=== PATIENT | male | born 1955 | race Caucasian/White ===

== ENCOUNTER 2018-03-13 07:34 | Inpatient (IN) ==
[2018-03-13] MEDS ORDERED: Heparin 10,000 UNITS/10 ML Vial (for IV use) ONE (07:41)
[2018-03-13] MEDS ORDERED: Heparin - SQ 10,000 UNITS/ML Vial ONE (07:41)
[2018-03-13] MEDS ORDERED: Protamine Sulfate Inj 50 MG/5 ML Vial ONE (07:41)
[2018-03-13] MEDS ORDERED: Sodium Chlor 0.9% Inj 500 ML IV.CONT ONE (08:30)
[2018-03-13] MEDS ORDERED: Metoprolol Tartrate 25 MG Tablet PO ONE (08:30)
[2018-03-13] MEDS ORDERED: Chlorhexidine Gluconate 2% 1 Pack (2 Cloths) TOPICAL ONE (08:30)
--- NOTE | 2018-03-13 08:41 | XR ---
EXAM DATE: 03/13/2018 8:38 AM EST AGE/SEX: 62 years / Male INDICATIONS: Evaluate for pneumothorax, pneumonia, and other communicable diseases. Pre-op, left car otid endarterectomy. CLINICAL DATA: This is the patient's initial encounter. Patient reports that signs and symptoms have been present for 1 day and indicates a pain score of 0/10. MEDICAL/SURGICAL HISTORY: Cerebrovascular disease. TIA's. . Carotid endarterectomy. COMPARISON: [facility] [place] AP, 01/28/2015. . FINDINGS: A single AP view of the chest demonstrates the lungs to be symmetrically aerated without evidence of mass, infiltrate or effusion. The cardiomediastinal contours are unremarkable. Osseous structures a re intact. CONCLUSION: No acute disease Electronically signed by: John Landon MD 03/13/2018 8:40 AM EST
[2018-03-13 08:53] LABS: Baso # (Auto) 0.1 th/mm3 (0.0-0.2); Baso % (Auto) 0.7 % (0.0-2.0); Eos # (Auto) 0.1 th/mm3 (0.0-0.4); Hematocrit 47.4 % (39.0-51.0); Hemoglobin 16.2 gm/dL (13.0-17.0); Lymph # (Auto) 2.1 th/mm3 (1.0-4.8); Lymph % (Auto) 29.5 % (9.0-44.0); Mean Corpuscular HGB Conc 34.2 % (32.0-36.0); Mean Corpuscular Volume 96.7 fL (80.0-100.0); Mean Platelet Volume 7.8 fL (7.0-11.0); Mono # (Auto) 0.5 th/mm3 (0.0-0.9); Mono % (Auto) 7.2 % (0.0-8.0); Neut # (Auto) 4.3 th/mm3 (1.8-7.7); Neut % (Auto) 60.6 % (16.0-70.0); Platelet Count 197 th/mm3 (150-450); Red Cell Distribution Width 13.6 % (11.6-17.2)
[2018-03-13] MEDS ORDERED: ceFAZolin 2 GM Premix Inj 2 GM/50 ML PIGGYBACK IV.SIG ONE (09:17)
[2018-03-13 09:27] LABS: Calcium 8.9 mg/dL (8.5-10.1); Potassium 4.5 meq/L (3.5-5.1)
[2018-03-13] MEDS ORDERED: *morphine SULFATE 10 MG/ML PERIprocedure ONLY ONE (13:09)
[2018-03-13] MEDS ORDERED: fentaNYL Citrate Inj 100 MCG/2 ML Ampul ONE ×2 (13:12)
[2018-03-13] MEDS ORDERED: *morphine SULFATE 4 MG/ML PERIprocedure ONLY ONE ×2 (13:40→14:03)
--- NOTE | 2018-03-13 13:42 | ECG ---
Date Performed: 03/13/2018 Time Performed: 08:35:53 PTAGE: 62 years EKG: SINUS BRADYCARDIA EARLY REPOLARIZATION BORDERLINE ECG Since the PREVIOUS TRACING , no significant change noted PREVIOUS TRACIN08/18/2014 21.32 DOCTOR: Cj Lopez Interpretating Date/Time 03/13/2018 13:40:03
[2018-03-13] MEDS ORDERED: Post-op Orders (for Pharmacy) OTHER ONE (13:57)
[2018-03-13] MEDS ORDERED: Bisacodyl 10 MG Supp RECTAL PRN (13:57)
[2018-03-13] MEDS ORDERED: Morphine Inj 4 MG/ML Vial IV.PUSH PRN (13:57)
[2018-03-13] MEDS ORDERED: Naloxone Inj 0.4 MG/ML Vial IV.PUSH PRN (13:57)
[2018-03-13] MEDS: Lisinopril 20 MG Tablet PO SCH (14:25)
[2018-03-13] MEDS: Metoprolol Tartrate 25 MG Tablet PO SCH ×2 (14:25→20:17)
[2018-03-13] MEDS: Sod Chloride 0.9% Inj 1,000 ML IV.CONT SCH (17:44)
[2018-03-13] MEDS: ceFAZolin 1 GM Premix Inj 1 GM/50 ML FROZ.PIGGY IV.SIG SCH (20:16)
[2018-03-13] MEDS: Senna/Docusate Sodium 8.6/50 MG Tablet PO SCH (20:17)
[2018-03-14] MEDS: ceFAZolin 1 GM Premix Inj 1 GM/50 ML FROZ.PIGGY IV.SIG SCH ×2 (03:34→12:21)
[2018-03-14 06:17] LABS: Baso % (Auto) 0.1 % (0.0-2.0); Hematocrit 39.3 % (39.0-51.0); Hemoglobin 13.4 gm/dL (13.0-17.0); Lymph # (Auto) 1.3 th/mm3 (1.0-4.8); Mean Corpuscular HGB Conc 34.1 % (32.0-36.0); Mean Corpuscular Hemoglobin 33.1 pg (27.0-34.0); Mean Corpuscular Volume 96.8 fL (80.0-100.0); Mean Platelet Volume 7.8 fL (7.0-11.0); Mono # (Auto) 0.7 th/mm3 (0.0-0.9); Mono % (Auto) 5.9 % (0.0-8.0); Neut # (Auto) 9.8 th/mm3 (1.8-7.7); Platelet Count 179 th/mm3 (150-450); Red Blood Count 4.06 mil/mm3 (4.50-5.90); Red Cell Distribution Width 13.4 % (11.6-17.2); White Blood Count 11.8 th/mm3 (4.0-11.0)
[2018-03-14 06:41] LABS: Calcium 8.5 mg/dL (8.5-10.1); Carbon Dioxide 23.3 meq/L (21.0-32.0); Potassium 4.4 meq/L (3.5-5.1)
[2018-03-14] MEDS: Senna/Docusate Sodium 8.6/50 MG Tablet PO SCH ×2 (08:16→08:28)
[2018-03-14] MEDS: Metoprolol Tartrate 25 MG Tablet PO SCH (08:16)
[2018-03-14] MEDS: Lisinopril 20 MG Tablet PO SCH (08:16)
[2018-03-14] MEDS: Sod Chloride 0.9% Inj 1,000 ML IV.CONT SCH (08:27)
--- NOTE | 2018-03-14 12:27 | P.PNVS ---
Subjective Subjective/Hospital Course: 62-year-old male underwent left carotid endarterectomy/redo for sub-bifurcation common carotid artery stenosis Patient is awake alert and oriented Neurologically fully intact Incision is clean and dry and hemodynamically patient is stable DC TERESITA DC patient today with follow-up in my office in about 2-3 weeks Objective Vital Signs / I&O: Vital Signs 03/13/18 13:01 03/13/18 13:02 03/13/18 13:15 Temperature 98.5 F Pulse Rate 65 64 65 Respiratory Rate 14 17 Blood Pressure 163/72 H 129/60 Pulse Oximetry 100 100 93 L 03/13/18 13:30 03/13/18 13:45 03/13/18 14:00 Temperature 97.8 F Pulse Rate 63 62 66 Respiratory Rate 13 9 L 15 Blood Pressure 153/70 H 140/64 143/73 H Pulse Oximetry 98 97 94 L 03/13/18 14:15 03/13/18 14:30 03/13/18 14:45 Temperature Pulse Rate 64 64 66 Respiratory Rate 10 L 9 L 20 Blood Pressure 142/65 H 135/66 Pulse Oximetry 97 97 96 03/13/18 14:55 03/13/18 15:07 03/13/18 15:13 Temperature Pulse Rate 66 65 Respiratory Rate 16 Blood Pressure 115/57 L Pulse Oximetry 96 94 L 96 03/13/18 15:29 03/13/18 16:00 03/13/18 17:00 Temperature 97.8 F Pulse Rate 64 61 68 Respiratory Rate 12 11 L 20 Blood Pressure 121/65 Pulse Oximetry 96 96 98 03/13/18 19:00 03/13/18 20:00 03/13/18 21:00 Temperature 97.9 F Pulse Rate 66 69 60 Respiratory Rate 21 26 H 16 Blood Pressure Pulse Oximetry 98 100 98 03/13/18 22:00 03/13/18 23:00 03/14/18 00:00 Temperature 98.1 F Pulse Rate 60 58 L 58 L Respiratory Rate 14 15 16 Blood Pressure Pulse Oximetry 97 97 98 03/14/18 01:00 03/14/18 02:00 03/14/18 03:00 Temperature Pulse Rate 57 L 56 L 55 L Respiratory Rate 13 17 16 Blood Pressure Pulse Oximetry 97 98 95 03/14/18 04:00 03/14/18 05:00 03/14/18 06:00 Temperature 98.4 F Pulse Rate 56 L 55 L 58 L Respiratory Rate 10 L 16 16 Blood Pressure Pulse Oximetry 97 99 96 03/14/18 07:00 03/14/18 07:29 03/14/18 08:00 Temperature 98.0 F Pulse Rate 57 L 66 57 L Respiratory Rate 11 L 28 H 17 Blood Pressure 142/67 H Pulse Oximetry 96 97 97 03/14/18 09:00 03/14/18 09:15 03/14/18 10:00 Temperature Pulse Rate 54 L 60 60 Respiratory Rate 10 L 27 H 23 Blood Pressure 173/78 H 144/68 H Pulse Oximetry 98 96 95 03/14/18 10:46 03/14/18 11:06 03/14/18 11:46 Temperature Pulse Rate 60 57 L Respiratory Rate 17 19 Blood Pressure 155/83 H 131/70 Pulse Oximetry 94 L 90 L 91 L 03/14/18 12:00 Temperature 98.1 F Pulse Rate 66 Respiratory Rate 29 H Blood Pressure Pulse Oximetry 91 L Intake & Output 03/13/18 03/14/18 03/14/18 18:59 06:59 18:59 Intake Total 1670 / 1670 580 / 580 Output Total 120 / 120 1135 / 1135 Balance 1550 / 1550 -555 / -555 Weight 68 kg 67.2 kg Intake: IV 50 / 50 100 / 100 Ancef 1 GM Premix Inj 1 gm In 100 / 100 50 ml @ 200 mls/hr IV.SIG Q8H REPLACED BY [facility] Rx#:[id number] Ancef 2 GM Premix Inj 2 gm In 50 / 50 50 ml @ 0 mls/hr IV.SIG .STK- [facility] Rx#:[id number] Oral 620 / 620 480 / 480 Anesthesia Amount 1000 / 1000 Output: Blood Draw 100 / 100 Urine 0 / 0 1100 / 1100 Wound Drainage 20 / 20 35 / 35 Left Neck 20 / 20 35 / 35 Other: # Voids 4 Weight On Admission 68 kg Laboratory Results - last 24 hr 03/14/18 03/14/18 05:00 05:00 WBC 11.8 H D RBC 4.06 L Hgb 13.4 D Hct 39.3 MCV 96.8 MCH 33.1 MCHC 34.1 RDW 13.4 Plt Count 179 MPV 7.8 Neut % (Auto) 83.0 H Lymph % (Auto) 11.0 Beckham % (Auto) 5.9 Eos % (Auto) 0.0 Baso % (Auto) 0.1 Neut # (Auto) 9.8 H Lymph # (Auto) 1.3 Beckham # (Auto) 0.7 Eos # (Auto) 0.0 Baso # (Auto) 0.0 WBC Differential . Differential Comment Auto diff final Sodium 134 L Potassium 4.4 Chloride 104 Carbon Dioxide 23.3 Anion Gap 7 BUN 12 Creatinine 1.03 Estimated GFR 74 L Random Glucose 130 H Calcium 8.5 Impressions Chest X-Ray 03/13/18 00:00 CONCLUSION: No acute disease
--- NOTE | 2018-03-14 16:11 | MP ---
cc: Michael Kunz MD DATE OF OPERATION: 03/13/2018 PREOPERATIVE DIAGNOSIS: Left carotid artery restenosis at the common carotid artery level. POSTOPERATIVE DIAGNOSIS: Left carotid artery restenosis at the common carotid artery level. PROCEDURE PERFORMED: Redo left carotid endarterectomy patch angioplasty. SURGEON: Michael Kunz MD ANESTHESIA: General. ESTIMATED BLOOD LOSS: 100 mL. INDICATIONS FOR PROCEDURE: This 62-year-old male who had a carotid endarterectomy for a tight left internal carotid artery stenosis, about 4 years ago. The patient did well for the first 3 years and followup study did not show significant degree of stenosis; however, a recent ultrasound followed by CTA revealed a sub-bifurcation stenosis about one-half inch proximal to where initial surgery was performed with patent bulb in internal carotid arteries; however, very tight, about 90%, narrowed area in the common carotid artery stenosis, hence the surgery. It should be noted the patient is a 1-1/2 pack a day smoker and continues to smoke. The patient was prepped and draped in usual fashion. A left neck incision was made in the same site where the previous incision was and deepened down through the platysma to the neurovascular bundle. Common carotid, internal and external carotid arteries were isolated with blunt and sharp dissection. Clearly, the patient had some scarring in the area, so care is taken to be very deliberate in this process. Hypoglossal nerve was carefully identified and preserved. The umbilical tapes with Kilo tourniquets were placed around this each vessel respectively loosely. The patient was given 5000 units of heparin. On the table Doppler was performed and there is a sudden drop in Doppler signal going from proximal common carotid to distal common carotid toward bifurcation. This corresponds to CTA findings. The bulldog was applied to the internal carotid, then a DeBakey clamp to the common. Vessels were opened longitudinally with 11 blade and Verdugo scissors. Readily, it is obvious that the patient has a ridge-like appearing plaque in the common carotid artery, about 1.5 cm below the level of the previous repair. Immediately, argyle shunt is placed and blood flow reestablished. The Rummels are cinched down. The carotid is now explored. The patch is opened with Verdugo scissors toward the internal carotid artery. It is noted that the carotid bulb and internal carotid arteries are nice and patent and no stenosis is here. The above-mentioned ridge is now explored. The patient has firm tissue on the very surface and underlying that is a soft gelatinous degenerated plaque that is elevated up in the common carotid artery and some gelatinous material from neointimal hyperplasia. I am surprised that this has not flushed off and caused a stroke. This is clearly degenerative change caused by atherosclerotic disease and some combined smoking. This plaque is now elevated in the medial plane with [place] dissector and then removed in 2 pieces. Area is irrigated with saline, small debris removed. The rest of the common, internal carotid artery and bulb appeared to be completely patent. A new 8 mm bovine patch is selected and sewn in with running 5-0 Prolene. Prior to completion of the arterial repair, the [place] shunt is removed and blood flow established in usual order and fashion, preventing embolization to internal carotid artery. Area irrigated with copious amounts of saline, meticulous hemostasis assured, and with additional stitch or two of 6-0 Prolene and then a piece of Surgicel placed over the patch, a #7 flat TERESITA placed. Incision closed with 2-0 Vicryl and 4-0 Monocryl in layers. The patient was taken to the operating room in stable condition, neurologically fully intact when he woke up in the recovery room. MD GIOVANNA Salas/perry , 12:34 PM , 12:45 PM
--- NOTE | 2018-03-16 16:13 | MD ---
cc: Michael Kunz MD DATE OF DISCHARGE: 03/14/2018 HISTORY OF PRESENT ILLNESS: This 62-year-old male presented with a recurrent left internal carotid artery stenosis. The patient had a carotid endarterectomy, internal carotid endarterectomy with patch angioplasty about 4 years ago. The patient continued to smoke afterwards and now presented with sub-bulbar stenosis in the common carotid artery, i.e., about 1.5 inches from where the last stenosis was. HOSPITAL COURSE: The patient was taken to the operating room and underwent redo left carotid endarterectomy with placement of a new patch. Postoperatively, the patient did well. Incision is clean and dry. The patient is neurologically fully intact. Patient is discharged in stable condition with followup in my office with a well-healing incision. MD GIOVANNA Salas/abe , 03:50 PM , 03:54 PM
== END 2018-03-14 14:58 | disposition home or self-care (01) ==
LOC: HSDI 07:34 → N03 15:06
PROVIDERS: ADMIT Surgery; ATTEND Surgery